=== PATIENT | male | born 1985 | race Caucasian/White ===

== ENCOUNTER 2018-11-11 14:58 | Emergency (ER) | payer SELFPAY ==
[~2018-11-11] VITALS: Ht 177.8 cm; Wt 103.9 kg
[2018-11-11] MEDS ORDERED: CYCLOBENZAPRINE10 MG PO (15:18)
[2018-11-11] MEDS ORDERED: NAPROSYN500 MG PO (15:18)
--- NOTE | 2018-11-11 16:07 | Diagnostic Imaging Report ---
Exam: Lumbar spine 2 views History: Back pain Comparison: None. Findings: No fracture or malalignment. Disc spaces preserved. No abnormal soft tissue calcification or soft tissue defect. Impression: No acute osseous abnormality Signed by: Dr. Keon Tionco M.D. on 11/11/2018 4:04 PM
== END 2018-11-11 16:25 | disposition home or self-care (01) ==
LOC: FSED 14:58
DX: S39.012A Strain of muscle, fascia and tendon of lower back, initial encounter (principal); G89.11 Acute pain due to trauma; X58.XXXA Exposure to other specified factors, initial encounter
CPT/HCPCS: 72100; 80307; 99283